=== PATIENT | female | born 1940 | race Caucasian/White ===

== ENCOUNTER → 2021-09-13 | Day surgery (SDC) | payer MEDICARE ==
[~2021-09-13] VITALS: Ht 170.2 cm; Wt 92.5 kg
[~2021-09-13] MED LIST: ACETAMINOPHEN 325MG TABLET PO PRN; CELE200C PO; DICL75TA5 PO; FENTANYL CITRATE/PF 50MCG/ML 2ML VIAL ONE; HEPARIN 1000 UNITS/ML 10ML ONE; HYDR-4009 MT; IODIXANOL 320MG/ML 100 ML BOTTLE IV ONE; LIDOCAINE HCL 1% 10 MG/ML 10ML VIAL ONE; MIDAZOLAM HCL 2 MG/2 ML VIAL ONE; NICARDIPINE 100MCG/ML 10ML VIAL (CATH LAB) IV ONE; NITROGLYCERIN 50MCG/ML 10ML VIAL (CATH LAB) IV ONE; ONDANSETRON HCL 4MG/2ML INJ IV PRN; PHENYLEPHRINE 100MCG/ML 10ML VIAL (CATH LAB) ONE; SUMA50TA16 PO; SYN150 PO
== END | disposition home or self-care (01) ==
LOC: CCL 09:26
PROVIDERS: ATTEND Specialist
DX: R94.39 Abnormal result of other cardiovascular function study (principal); I25.10 Atherosclerotic heart disease of native coronary artery without angina pectoris; I10 Essential (primary) hypertension; E03.9 Hypothyroidism, unspecified; Z79.899 Other long term (current) drug therapy; Z98.890 Other specified postprocedural states; Z88.8 Allergy status to other drugs, medicaments and biological substances; Z82.49 Family history of ischemic heart disease and other diseases of the circulatory system; Z20.822 Contact with and (suspected) exposure to COVID-19
CPT/HCPCS: 87426; 93458; 93571; 93572; 99152; 99153; C1769; C1887; C1893; C9803; J1644; J2250; J2370; J3010; J3490; Q9967; G0500